=== PATIENT | male | born 1955 | race Caucasian/White ===

== ENCOUNTER 2019-02-02 07:00 | Day surgery (SDC) | payer OTHER ==
[2019-02-02] VITALS (14 sets, daily range): BP systolic 117–140; BP diastolic 69–85; PULSE 72–82; RESP 12–20; Ht 172.7 cm; Wt 88.9 kg
[~2019-02-02] VITALS: Ht 172.7 cm; Wt 88.9 kg
[2019-02-02] MEDS ORDERED: ERGO500013 (07:37)
[2019-02-02] MEDS ORDERED: CEPH500C (07:37)
[2019-02-02] MEDS ORDERED: HYDR-3609 (07:37)
[2019-02-02] MEDS ORDERED: [UNRECOGNIZED DRUG - CODE] (07:37)
--- NOTE | 2019-02-02 08:12 | HPN ---
Date/Time of Note Date/Time of Note DATE: 02/02/19 TIME: 08:11 Interval H&P Admission Note Pt. seen H&P reviewed: No system changes SHARRON VALIENTE MD Feb 02, 2019 08:12
--- NOTE | 2019-02-02 09:19 | PREAC ---
Date/Time of Note Date/Time of Note DATE: 02/02/19 TIME: 09:18 Anesthesia Eval and Record Evaluation Time Pre-Procedure Interview DATE: 02/02/19 TIME: 09:18 Age 63 Sex male NPO: 8 hrs Preoperative diagnosis right knee pain Planned procedure right knee operative arthroscopy, meniscectomy Past Medical History Past Medical History: None Surgery & Anesthesia Issues No known issue Meds Anticoagulation: No Beta Lluvia within 24 hr: No Reason Beta Lluvia not given: Pt. not on B-Lluvia Reported Medications Ergocalciferol (Vitamin D2) (VITAMIN D2) 50,000 Unit Capsule 02/02/19 Sildenafil Citrate (Sildenafil Citrate) 100 Mg Tablet 02/02/19 Cephalexin* (Cephalexin*) 500 Mg Capsule 02/02/19 Hydrocodone/Acetaminophen (Hydrocodone-Acetamin 10-325 mg) 1 Each Tablet 02/02/19 Meds reviewed: Yes (last dose sildenafil 4 weeks ago per patient report ) Allergies Coded Allergies: No Known Allergies (Verified Allergy, Unknown, 02/02/19) Allergies Reviewed: Yes Labs/Studies Labs Reviewed: Reviewed by anesthesiologist test: N/A Studies: ECG, CXR Pre-procedure Exam Last vitals Vital Signs Date Temp Pulse Resp B/P (MAP) Pulse Ox O2 O2 Flow FiO2 Time Delivery Rate 02/02/19 97.6 73 16 134/78 96 Room Air 07:32 (96) Airway: Adequate mouth opening, Adequate thyromental dist Mallampati: Mallampati II Teeth: Normal Lung: Normal Heart: Normal ASA Physical Status ASA physical status: 1 Emergency: None Planned Anesthetic General/MAC: LMA Planned Pain Management Parenteral pain med, Other neuraxial med Pre-operative Attestations Prior to commencing anesthesia and surgery, the patient was re-evaluated, there was verification of: *The patient's identity *The results of appropriate recent lab work and preoperative vital signs *The above evaluation not changing prior to induction *Anesthetic plan, risk benefits, alternative and complications discussed with patient/family; questions answered; patient/family understands, accepts and wishes to proceed. DAISY CLARK Feb 02, 2019 09:19
[2019-02-02] MEDS ORDERED: PROPOFOL 20 ML ONE (09:24)
[2019-02-02] MEDS ORDERED: MIDAZOLAM 1 MG/ML 2 ML INJ ONE (09:24)
[2019-02-02] MEDS ORDERED: CEFAZOLIN 1 GM INJ ONE (09:24)
[2019-02-02] MEDS ORDERED: LIDOCAINE 2% (SDV) 5 ML INJ ONE (09:24)
[2019-02-02] MEDS ORDERED: FENTAnyl 50 MCG/ML VIAL ONE ×2 (09:27→10:26)
[2019-02-02] MEDS ORDERED: OXYCODONE/ACETAMINOPHEN (5/325) TAB PO PRN ×2 (09:30)
[2019-02-02] MEDS ORDERED: ONDANSETRON 4 MG INJ IV PRN (09:30)
[2019-02-02] MEDS ORDERED: HYDROmorphONE 1 MG/5 ML IV SYRINGE IV PRN ×3 (09:30)
[2019-02-02] MEDS ORDERED: MEPERIDINE 25 MG INJ IV PRN (09:30)
[2019-02-02] MEDS ORDERED: ROPIVACAINE 0.5 % 30 ML VIAL ONE (09:59)
[2019-02-02] MEDS ORDERED: LIDOCAINE 1% (MPF) 30 ML INJ ONE (09:59)
[2019-02-02] MEDS ORDERED: morphine SULFATE/PF (10 MG/10 ML) INJ ONE (10:00)
[2019-02-02] MEDS ORDERED: NEOMYC/POLYMYX/BACIT 30 GM OINT ONE (10:00)
[2019-02-02] MEDS ORDERED: FAMOTIDINE 20 MG INJ ONE (10:04)
[2019-02-02] MEDS ORDERED: METOCLOPRAMIDE 10 MG INJ ONE (10:04)
[2019-02-02] MEDS ORDERED: ONDANSETRON 4 MG INJ ONE (10:04)
[2019-02-02] MEDS ORDERED: DEXAMETHASONE 4 MG/ML 5 ML INJ ONE (10:04)
[2019-02-02] MEDS ORDERED: HEPARIN 1000 UNITS/ML 10 ML INJ ONE (10:19)
[2019-02-02] MEDS ORDERED: SODIUM CL BACTERIOSTATIC 30 ML INJ ONE (10:19)
[2019-02-02] MEDS ORDERED: EPHEDrine 25 MG/5 ML SYG ONE (10:32)
[2019-02-02] MEDS ORDERED: IOHEXOL 300MG/ML 30 ML BTL ONE (10:33)
[2019-02-02] MEDS ORDERED: LABETALOL HCL 20MG INJ ONE (11:02)
[2019-02-02] MEDS ORDERED: KETOROLAC 30 MG INJ ONE (11:14)
--- NOTE | 2019-02-02 12:22 | PAC ---
Date/Time of Note Date/Time of Note DATE: 02/02/19 TIME: 12:22 Post-Anesthesia Notes Post-Anesthesia Note Last documented vital signs Vital Signs Date Temp Pulse Resp B/P (MAP) Pulse Ox O2 O2 Flow FiO2 Time Delivery Rate 02/02/19 98.2 82 18 120/74 99 Mask 6.0 11:51 (89) Activity: WNL Respiratory function: WNL Cardiovascular function: WNL Mental status: Baseline Pain reasonably controlled: Yes Hydration appropriate: Yes Nausea/Vomiting absent: Yes DAISY CLARK Feb 02, 2019 12:22
[2019-02-02] MEDS ORDERED: morphine 2 MG INJ IV PRN (12:30)
--- NOTE | 2019-02-02 12:35 | OPR ---
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, grade 3 of the MFC/MTP/trochlea Operation/Procedure Performed Right knee arthroscopy with chondroplasty Right knee arthroscopy with partial medial lateral meniscectomy Right knee sub-chondroplasty with treatment of medial tibial plateau chronic bone marrow edema lesion with bone marrow aspirate concentrate from the right iliac crest Surgeon Sharron Valiente MD Sleeve Turner None Anesthesia Type: general Anesthesiologist: DAISY CLARK Tourniquet Time: none Estimated Blood Loss: minimal Transfusion none Specimen None Grafts/Implants Arthrex Kavon bone marrow aspirate concentrate mixed with allosync pure Complications none Pt Condition Post Procedure: stable Disposition: PACU Indications INDICATIONS: Patient is a 63-year-old male with ongoing Right knee pain. The patient has complained of having catching, clicking and locking symptoms over the medial aspect of the knee with no relief with physical therapy or anti- inflammatory. MRI shows chronic bone marrow edema lesion to the medial tibial plateau. Patient has decided to proceed with surgery. RISK NOTE: Patient was explained the risks and benefits of the surgery in the patients [place] language, including not limited to infection, bleeding, loss of limb, loss of life, need for future surgery, risk of anesthesia, risk of injury to the blood vessels and nerves, ligaments or tendons, and risk of deep vein thrombosis. Patient understood these risks and wished to proceed with the surgery. Procedure Description : The correct operative site was noted and marked in the preoperative holding area. The patient was then brought back into the operative theater, placed supine on the operative table. Right knee was examined under anesthesia. Range of motion was 0-120. There is no varus or valgus or anterior or posterior instability. There is crepitus noticed at the patellofemoral joint. Patient was then given preoperative antibiotics and then prepped and draped in normal sterile fashion. A timeout was taken and all parties in the room agreed it was the correct patient, correct extremity and correct procedure. . Trochlea showed attention was initially turned to the right iliac crest where 60 cc of bone marrow aspirate concentrate was removed using a Jamshidi and then sent off for centrifugation. Tourniquet was then placed on the operative extremity thigh sterilely. Standard anterior lateral portal was created and the knee joint was entered with a blunt tipped trocar, followed by 30 arthroscope. Inflow was achieved with a pump and the pressure maintained at approximately 50 mmHg. A routine arth roscopic surgery was performed. Suprapatella pouch was unremarkable. The undersurface of the patella showed advanced grade 1 -2 chondromalacia. The trochlea showed grade 3 chondral lesion The medial and lateral gutters were visualized. There were no loose bodies seen. There is an inflamed hypertrophic plica noted in the anterior and superior medial aspect of the knee. The popliteus hiatus was entered and was normal. Lateral compartment was entered and grade 1 chondromalacia was seen on the lateral tibial plateau and femoral condyle. Scope was then brought into the intercondylar notch and an anteromedial portal was made. Shaver was brought into the knee and small amount of fat pad and scar tissue was initially gently debrided. The anterior cruciate ligament was intact and probed. The knee was brought into a valgus position and the medial compartment was entered. The articular surface of the medial femoral condyle and medial tibial plateau revealed diffuse grade 3/44 chondromalacia. There was a degenerative posterior horn medial meniscus tear extending to the midbody that was associated with a radial tear that visualized and debrided gently with a motorized shaver and basket forceps, the posterior horn demonstrated a degenerative tear and fibrillation pattern. The motorized shaver and basket biters were used to smooth the remaining meniscal rim, with care to maintain the peripheral meniscal rim. A probe was introduced and this was carefully probed and was found to be stable. Chondroplasty was th en carried out along the weightbearing aspect of the medial femoral condyle, medial tibial plateau, taking care to remove only loose articular cartilage debris and preserve functional articular cartilage. The lateral compartment was reentered and the loose chondral debris was debrided with motorized shaver. The lateral meniscus was probed and found to have a partial tear of the mid body and posterior horn that was treated with both a biter and a shaver to a firm and stable rim. Attention was then directed back to the patella femoral joint and a chondroplasty was carried out along the weightbearing aspect of the trochlea and undersurface of the patella to again remove loose debris and maintain functional active articular cartilage. Under fluoroscopic guidance a Jamshidi was placed at the medial tibial plateau and the allosync pure that was mixed with the bone marrow aspirate concentrate was then placed under fluoroscopic guidance to the site of the bone marrow edema lesion that was shown to be in the correct position both AP and lateral fluoroscopy image. The scope was then brought back into the knee and there should be no extrava sation of any of the graft. The knee was then irrigated with additional 2 L of lactated Ringers solution. Excess fluid was then drained. Range of motion was then attempted showing 0- 125 degrees of motion The portal sites were closed with 4-0 Monocryl and Steri-Strips and dressed with Xeroform and triple antibiotic ointment. The knee was then injected with 20 cc of 0.5% plain ropivacaine. A dry sterile dressing was then applied, followed by a compressive bulky soft bandage and an PAULY Wrap. At the completion of the surgery patient had palpable pulses, soft arms and brisk cap refill. The patient tolerated the procedure well and was taken to the PACU without any complications. All sponge and needle counts were correct. Patient will begin pain medicine and 48 hours of antibiotics as well as aspirin 81 mg for the duration of 4 weeks postoperatively. He will be nonweightbearing for the next 3 weeks. SHARRON VALIENTE MD Feb 02, 2019 12:35
== END 2019-02-02 13:55 | disposition home or self-care (01) ==
LOC: SDS 07:00
PROVIDERS: ATTEND Orthopaedic Surgery
DX: M23.221 Derangement of posterior horn of medial meniscus due to old tear or injury, right knee (principal); M23.251 Derangement of posterior horn of lateral meniscus due to old tear or injury, right knee; M94.261 Chondromalacia, right knee
CPT/HCPCS: 29880; 73562; 82306; J0690; J1100; J1170; J1644; J1885; J2250; J2405; J2765; J3010; Q9967; J2274; J2795

== ENCOUNTER 2019-05-25 07:31 | Day surgery (SDC) | payer OTHER ==
[2019-05-25] VITALS (19 sets, daily range): BP systolic 112–163; BP diastolic 66–96; PULSE 53–91; RESP 14–20; Ht 175.3 cm; Wt 89.2 kg
[~2019-05-25] VITALS: Ht 175.3 cm; Wt 89.2 kg
--- NOTE | 2019-05-25 07:28 | HPN ---
Date/Time of Note Date/Time of Note DATE: 05/25/19 TIME: 07:28 Interval H&P Admission Note Pt. seen H&P reviewed: No system changes SHARRON VALIENTE MD May 25, 2019 07:28
[~2019-05-25 07:31] MED LIST: CEPH500C; ERGO500013; HYDR-3609; [UNRECOGNIZED DRUG - CODE]
--- NOTE | 2019-05-25 08:48 | PREAC ---
Date/Time of Note Date/Time of Note DATE: 05/25/19 TIME: 08:47 Anesthesia Eval and Record Evaluation Time Pre-Procedure Interview DATE: 05/25/19 TIME: 08:47 Age 63 Sex male NPO: 8 hrs Preoperative diagnosis knee pain Planned procedure knee meniscus repair Past Medical History Past Medical History: Includes Cardio: HTN Surgery & Anesthesia Issues No known issue Meds Anticoagulation: No Beta Lluvia within 24 hr: No Reason Beta Lluvia not given: Pt. not on B-Lluvia Discontinued Reported Medications Ergocalciferol (Vitamin D2) (VITAMIN D2) 50,000 Unit Capsule 02/02/19 Sildenafil Citrate (Sildenafil Citrate) 100 Mg Tablet 02/02/19 Cephalexin* (Cephalexin*) 500 Mg Capsule 02/02/19 Hydrocodone/Acetaminophen (Hydrocodone-Acetamin 10-325 mg) 1 Each Tablet 02/02/19 Meds reviewed: Yes Allergies Coded Allergies: No Known Allergies (Verified Allergy, Unknown, 05/25/19) Allergies Reviewed: Yes Labs/Studies Labs Reviewed: Reviewed by anesthesiologist test: N/A Studies: ECG Pre-procedure Exam Last vitals Vital Signs Date Temp Pulse Resp B/P (MAP) Pulse Ox O2 O2 Flow FiO2 Time Delivery Rate 05/25/19 97.8 77 16 151/91 98 Room Air 08:19 (111) Airway: Adequate mouth opening, Adequate thyromental dist Mallampati: Mallampati II Teeth: Normal Lung: Normal Heart: Normal ASA Physical Status ASA physical status: 2 Emergency: None Planned Anesthetic General/MAC: ETT Pre-operative Attestations Prior to commencing anesthesia and surgery, the patient was re-evaluated, there was verification of: *The patient's identity *The results of appropriate recent lab work and preoperative vital signs *The above evaluation not changing prior to induction *Anesthetic plan, risk benefits, alternative and complications discussed with patient/family; questions answered; patient/family understands, accepts and wis hes to proceed. SHANTE ZAMORA May 25, 2019 08:48
[2019-05-25] MEDS ORDERED: NEOMYC/POLYMYX/BACIT 30 GM OINT ONE (08:55)
[2019-05-25] MEDS ORDERED: ROPIVACAINE 0.5 % 30 ML VIAL ONE (08:55)
[2019-05-25] MEDS ORDERED: ALBUTEROL 0.083% (NEB) 2.5 MG/3 ML AMP HHN PRN (09:00)
[2019-05-25] MEDS ORDERED: HYDROmorphONE 1 MG/5 ML IV SYRINGE IV PRN ×3 (09:00)
[2019-05-25] MEDS ORDERED: DIPHENHYDRAMINE 50 MG INJ IV PRN (09:00)
[2019-05-25] MEDS ORDERED: ONDANSETRON 4 MG INJ IV PRN (09:00)
[2019-05-25] MEDS ORDERED: FENTAnyl 50 MCG/ML VIAL IV PRN ×3 (09:00)
[2019-05-25] MEDS ORDERED: MEPERIDINE 25 MG INJ IV PRN (09:00)
[2019-05-25] MEDS ORDERED: METOCLOPRAMIDE 10 MG INJ IV PRN (09:00)
[2019-05-25] MEDS ORDERED: FENTAnyl 50 MCG/ML VIAL ONE (09:10)
[2019-05-25] MEDS ORDERED: SODIUM CL BACTERIOSTATIC 30 ML INJ ONE (09:31)
[2019-05-25] MEDS ORDERED: HEPARIN 1000 UNITS/ML 10 ML INJ ONE (09:32)
[2019-05-25] MEDS ORDERED: IOHEXOL 300MG/ML 30 ML BTL ONE (09:32)
[2019-05-25] MEDS ORDERED: LIDOCAINE 100 MG SYRINGE ONE (09:37)
[2019-05-25] MEDS ORDERED: SUGAMMADEX SODIUM 200 MG/2 ML VIAL IV ONE (09:37)
[2019-05-25] MEDS ORDERED: CEFAZOLIN 1 GM INJ ONE (09:37)
[2019-05-25] MEDS ORDERED: PROPOFOL 20 ML ONE (09:37)
[2019-05-25] MEDS ORDERED: ROCURONIUM 50 MG INJ ONE (09:37)
[2019-05-25] MEDS ORDERED: SUCCINYLCHOLINE CHLORIDE 100 MG/5 ML SYG IV ONE (09:37)
--- NOTE | 2019-05-25 11:00 | OPR ---
Date/Time of Note Date/Time of Note DATE: 05/25/19 TIME: 10:57 Operative Report Procedure Date: May 25, 2019 Preoperative Diagnosis Left knee medial meniscal tear Left knee lateral tibial plateau chronic subchondral insufficiency fracture Left knee chondromalacia Postoperative Diagnosis Left knee medial meniscal tear Left knee lateral tibial plateau chronic subchondral insufficiency fracture Left knee chondromalacia Operation/Procedure Performed Left knee arthroscopy with chondroplasty Left knee arthroscopy with partial medial meniscectomy Left knee treatment of lateral tibial plateau chronic subchondral insufficiency fracture with bone marrow aspirate concentrate from the Left iliac crest harvest of Bone marrow Aspirate Concentrate from the left Iliac Ab Surgeon Sharron Valiente MD Family Welfare Social Work Professor none Anesthesia Type: general Anesthesiologist: SHANTE ZAMORA Tourniquet Time: none Estimated Blood Loss: minimal Transfusion none Specimen none Grafts/Implants Arthrex Kavon bone marrow aspirate concentrate mixed with allosync pure Complications none Pt Condition Post Procedure: stable Disposition: PACU Indications INDICATIONS: Patient is a 63-year-old male with ongoing Left knee pain. The patient has complained of having catching, clicking and locking symptoms over the medial aspect of the knee with no relief with physical therapy or anti-inflammatory. MRI shows chronic subchondral insufficiency fracture to the lateral tibial plateau. Patient has decided to proceed with surgery. RISK NOTE: Patient was explained the risks and benefits of the surgery in the patients [place] language, including not limited to infection, bleeding, loss of limb, loss of life, need for future surgery, risk of anesthesia, risk of injury to the blood vessels and nerves, ligaments or tendons, and risk of deep vein thrombosis. Patient understood these risks and wished to proceed with the surgery. Procedure Description The correct operative site was noted and marked in the preoperative holding area. The patient was then brought back into the operative theater, placed supine on the operative table. Left knee was examined under anesthesia. Range of motion was 0-120. There is no varus or valgus or anterior or posterior instability. There is crepitus noticed at the patellofemoral joint. Patient was then given preoperative antibiotics and then prepped and draped in normal sterile fashion. A timeout was taken and all parties in the room agreed it was the correct patient, correct extremity and correct procedure. Attention was initially directed to the left iliac crest where a Jamshidi needle was placed just proximal to the anterior superior iliac spine. Approximately 60 cc of bone marrow aspirate was removed from the left iliac crest and sent off for centrifugation. The wound was irrigated and then 10 cc in rope and was placed at the incision and closed with a 4-0 Monocryl and Steri-Strips and dressed the Tegaderm. Tourniquet was then placed on the operative extremity thigh sterilely. Standard anterior lateral portal was created and the knee joint was entered with a blunt tipped trocar, followed by 30 arthroscope. Inflow was achieved with a pump and the pressure maintained at approximately 50 mmHg. A routine arthroscopic surgery was performed. Suprapatella pouch was unremarkable. The undersurface of the patella showed advanced grade 1 chondromalacia. The trochlea showed no chondromalacia. The medial and lateral gutters were visualized. There were no loose bodies seen. There is an inflamed hypertrophic plica noted in the anterior and superior medial aspect of the knee. The popliteus hiatus was entered and was normal. Lateral compartment was entered and grade 1 chondromalacia was seen on the lateral tibial plateau and femoral condyle. Scope was then brought into the intercondylar notch and an anteromedial portal was made. Shaver was brought into the knee and small amount of fat pad and scar tissue was initially gently debrided. The anterior cruciate ligament was intact and probed. The knee was brought into a valgus position and the medial compartment was entered. The articular surface of the medial femoral condyle and medial tibial plateau revealed diffuse grade I chondromalacia and a focal grade 3 chondral injury to the medial femoral condyle chondromalacia. There was a degenerative posterior horn medial meniscus tear extending to the midbody that was associated with a radial tear that visualized and debrided gently with a motorized shaver and basket forceps, the posterior horn demonstrated a degenerative tear and fibrillation pattern. The motorized shaver and basket biters were used to smooth the remaining meniscal rim, with care to maintain the peripheral meniscal rim. A probe was introduced and this was carefully probed and was found to be stable. Chondroplasty was then carried out along the weightbearing aspect of the medial femoral condyle, medial tibial plateau, taking care to remove only loose articular cartilage debris and preserve functional articular cartilage. The lateral compartment was reentered and the loose chondral debris was debrided with motorized shaver. The lateral meniscus was probed and found to be stable. Attention was then directed back to the patella femoral joint and a chondroplasty was carried out along the weightbearing aspect of the trochlea and undersurface of the patella to again remove loose debris and maintain functional active articular cartilage. Under fluoroscopic guidance a Jamshidi was placed at the lateral tibial plateau and the 3 cc of allosync pure that was mixed with the bone marrow aspirate concentrate was then placed under fluoroscopic guidance to the site of the subchondral insufficiency fracture and cyst that was shown to be in the correct position both AP and lateral fluoroscopy image. The scope was then brought back into the knee and there was no extravasation of any of the graft. The knee was then irrigated with additional 2 L of lactated Ringers solution. Excess fluid was then drained. Range of motion was then attempted showing 0- 125 degrees of motion The portal sites were closed with 4-0 Monocryl and Steri-Strips and dressed with Xeroform and triple antibiotic ointment. The knee was then injected with 20 cc of 0.5% plain ropivacaine. A dry sterile dressing was then applied, followed by a compressive bulky soft bandage and an PAULY Wrap. At the completion of the surgery patient had palpable pulses, soft arms and brisk cap refill. The patient tolerated the procedure well and was taken to the PACU without any complications. All sponge and needle counts were correct. Patient will begin pain medicine and 48 hours of antibiotics as well as aspirin 81 mg for the duration of 4 weeks postoperatively. He will be nonweightbearing for the next 3 weeks in a T ROM brace. SHARRON VALIENTE MD May 25, 2019 11:00
[2019-05-25] MEDS ORDERED: morphine 2 MG INJ IV PRN (12:00)
--- NOTE | 2019-05-27 09:15 | PAC ---
Date/Time of Note Date/Time of Note DATE: 05/27/19 TIME: 09:15 Post-Anesthesia Notes Post-Anesthesia Note Last documented vital signs Vital Signs Date Temp Pulse Resp B/P (MAP) Pulse Ox O2 O2 Flow FiO2 Time Delivery Rate 05/25/19 96.7 77 18 154/92 98 Room Air 13:00 (112) Activity: WNL Respiratory function: WNL Cardiovascular function: WNL Mental status: Baseline Pain reasonably controlled: Yes Hydration appropriate: Yes Nausea/Vomiting absent: Yes SHANTE ZAMORA May 27, 2019 09:15
== END 2019-05-25 11:14 | disposition home or self-care (01) ==
LOC: SDS 07:31
PROVIDERS: ATTEND Orthopaedic Surgery
DX: S83.242A Other tear of medial meniscus, current injury, left knee, initial encounter (principal); M94.262 Chondromalacia, left knee; M84.462A Pathological fracture, left tibia, initial encounter for fracture; X58.XXXA Exposure to other specified factors, initial encounter
CPT/HCPCS: 29881; 73562; 82306; J0690; J1644; J2001; J2795; J3010; Q9967